=== PATIENT | female | born 1970 | race Caucasian/White ===

== ENCOUNTER 2016-08-10 06:14 | Day surgery (SDC) | payer OTHER ==
[2016-08-07 13:44] VITALS: BMI 21.6
[2016-08-10] MEDS ORDERED: ceFAZolin SODIUM 1 GM VIAL ONE ×2 (07:18→07:26)
[2016-08-10] MEDS ORDERED: EPINEPHrine 1:1,000 1 MG/1 ML - 30ML VIAL (INJECTION) ONE (07:18)
[2016-08-10] MEDS ORDERED: LIDOCAINE HCL 1%, 10 MG/ML (20ML VIAL) ONE (07:18)
[2016-08-10] MEDS ORDERED: GENTAMICIN SO4 80 MG/2 ML VIAL ONE (07:18)
[2016-08-10] MEDS ORDERED: LIDOCAINE 1%-EPI 1:100,000 30 ML MDV IJ ONE (07:19)
[2016-08-10] MEDS ORDERED: GUM MASTIC/STORAX/MSAL/ALCOHOL 1 DRP DROPSBTL MC ONE (07:23)
[2016-08-10] MEDS ORDERED: PROPOFOL 20 ML ONE (07:26)
[2016-08-10] MEDS ORDERED: LIDOCAINE HCL 2% JELLY (5 ML/TUBE) ONE (07:27)
[2016-08-10] MEDS ORDERED: ONDANSETRON 4 MG/2 ML VIAL ONE (07:27)
[2016-08-10] MEDS ORDERED: KETOROLAC TROMETHAMINE 30 MG/1 ML VIAL ONE (07:27)
[2016-08-10] MEDS ORDERED: SUCCINYLCHOLINE CHLORIDE 200 MG/10 ML VIAL ONE (07:27)
[2016-08-10] MEDS ORDERED: LIDOCAINE HCL/PF 2% SDV 5ML VIAL ONE (07:27)
[2016-08-10] MEDS ORDERED: MIDAZOLAM HCL 2 MG/2 ML SINGLE DOSE VIAL ONE (07:27)
[2016-08-10] MEDS ORDERED: DEXAMETHASONE SOD PHOSPHATE 4 MG/1 ML VIAL ONE (07:27)
[2016-08-10] MEDS ORDERED: ePHEDrine SULFATE 50 MG/1 ML AMPULE ONE (08:18)
[2016-08-10] MEDS ORDERED: PROMETHAZINE HCL 25 MG/1 ML VIAL IVPUSH PRN (10:18)
[2016-08-10] MEDS ORDERED: ONDANSETRON 4 MG/2 ML VIAL IVPUSH PRN (10:18)
[2016-08-10] MEDS ORDERED: oxyCODONE HCL 5 MG TABLET PO PRN ×2 (10:18)
[2016-08-10] MEDS ORDERED: LACTATED RINGERS SOLUTION 1,000 ML IV SCH (10:30)
[2016-08-10 11:16] VITALS: TEMP 97.2
[2016-08-10 12:00] VITALS: BP 112/72; PULSE 82
--- NOTE | 2016-08-13 12:55 | PATH ---
Surgical Pathology Report Patient Name: TAVARES QUINN [facility]. Rec. #: [id number] /Age/Gender: 1970 (Age: 45) / F Account: [id number] Location: [facility] Taken: 08/10/2016 Received: 08/10/2016 Reported: 08/13/2016 Physicians: Rafael Medina Specimen(s) Received A: RIGHT BREAST CAPSULE B: LEFT BREAST CAPSULE C: BREAST IMPLANTS Clinical History Acquired chest wall deformity Final Diagnosis A. CAPSULE, RIGHT BREAST, CAPSULECTOMY: FIBROUS CAPSULE. B. CAPSULE, LEFT BREAST, CAPSULECTOMY: FIBROUS CAPSULE. C. BREAST IMPLANTS, REMOVAL: IMPLANTS, DESCRIBED (GROSS EXAMINATION ONLY). Electronically Signed Samira English M.D. Gross Description A. Received in formalin labeled "right breast capsule," are 2 guevara portions of fibrotic tissue measuring 6.0 x 0.9 x 0.3 cm and 6.5 x 1.1 x 0.3 cm, consistent with fibrous capsules. No discrete masses are identified. Location Manager sections are submitted in one cassette. B. Received in formalin labeled "left breast capsule," is a 6.5 x 1.3 x 0.3 cm guevara, irregular portion of fibrotic tissue, consistent with a breast capsule. No discrete masses are identified. Location Manager sections are submitted in one cassette. C. Received fresh labeled "breast implants," are 2 rubbery breast implants averaging 13 cm in diameter and 3.5 cm in depth. No soft tissue is present. No sections are submitted, gross only. 08/10/201608/10/2016
--- NOTE | 2016-08-13 14:32 | OP ---
DATE OF OPERATION: 08/10/2016 OPERATIVE PROCEDURE: 1. Right breast reconstruction with other technique. 2. Left breast reconstruction with other technique. 3. Right breast capsulectomy, removal and replacement of right breast implant. 4. Left breast capsulectomy, removal and replacement of left breast implant. 5. Bilateral breast mastopexy. SURGEON: Ruthann Medina MD HEATING ELEMENT BUILDER SURGEON: FARHAT Medeiros PREOPERATIVE DIAGNOSIS: 1. Bilateral acquired chest wall deformity status post bilateral mastectomy. 2. Asymmetry of reconstructed chest wall. 3. Mechanical complication of breast implant. 4. History of breast cancer. POSTOPERATIVE DIAGNOSIS: 1. Bilateral acquired chest wall deformity status post bilateral mastectomy. 2. Asymmetry of reconstructed chest wall. 3. Mechanical complication of breast implant. 4. History of breast cancer. OPERATIVE INDICATION: Patient is a young woman who presents with asymmetry of the reconstructed chest wall after bilateral mastectomy and requires the above procedures. The risks and benefits, surgical versus nonsurgical alternatives, as well as material complications were described to the patient on multiple occasions preoperatively, including today in the holding area where the patient was marked in a standing position with knowledge of the incisions and procedure. OPERATIVE PROCEDURE IN DETAIL: Patient was taken to the operating room after induction of general anesthesia in the supine position. Both arms were extended and padded. Venodyne boots were placed, and attention was turned to the chest and abdomen. The entire chest wall, abdomen, flanks and hips were prepped in the usual fashion for breast reconstruction. Using ChloraPrep solution, the entire area was covered, and sterile drapes were placed in the usual fashion. After a time-out, attention was turned to the mastectomy scars. One percent local lidocaine anesthesia and 1:1000 epinephrine was injected into the mastectomy scars on both breasts and also on the lateral flank area for harvest of tissue. At this point, an incision was made in the right breast down through the skin to the subcutaneous tissue, through the subcutaneous tissue down to the underlying capsule. I then performed a capsulotomy and opened the capsule and then removed portions of the capsule in order to remove the implant itself. The implant was removed and sent for pathologic diagnosis. At this point, copious irrigation of the wound was performed, and attention was turned to the opposite left breast. The exact same procedure was carried out symmetrically, also performing capsulectomy and removal of the implant in a similar fashion. Attention was then turned to the lateral flank area. An incision was made down through the skin into the deep tissue of the lateral flank down to the underlying area just above the fascia. Tissue was then harvested for reconstructive purposes and transferred to the back table for preparation. This was washed, cleansed and prepared in order to reconstruct the breast in the usual fashion for breast reconstruction with other technique. At this point, implants were chosen for reconstructive purposes. They were transferred to the chest wall, and sizers were then tried in this pocket. Multiple small sizers were placed into the pocket, which appeared to be inadequate for shape of the breast, and then a [facility] [employer] [facility] Inspira cohesive breast implant, style SCF 345 mL was placed into the pocket of the right breast, which showed good shape and contour. The exact same size was then placed into the left breast symmetrically. The patient sat into a sitting position and showed good symmetry and contour. The capsule was down-sized in order to accommodate the implant, using the popcorn technique. Copious irrigation of the wounds were performed with triple-antibiotic solution throughout the case; 10 mL of Marcaine was infiltrated into the tissues for anesthetic purposes. The tissue was then transferred to the superior, inferior, lateral and medial portions of the right breast, superior, medial and lateral and central portions of the left breast. The capsule was then advanced to close upon itself for the new smaller-sized implant, and this was closed using 2-0 PDS sutures in interrupted fashion. The deep tissues were closed with 3-0 PDS sutures in the deep tissue, advanced and closed upon themselves, and the skin was closed using 3-0 PDS and 4-0 Biosyn suture in a subcuticular fashion. All wounds were closed in the flank using running and interrupted sutures. She tolerated the procedure well. She was dressed sterilely with a fluff dressing, surgery bra, and a compression dressing. She was awakened, extubated and transferred to the recovery room in satisfactory condition. RUTHANN MEDINA M.D. [id number]
== END 2016-08-10 11:50 | disposition home or self-care (01) ==
LOC: FASU 06:14
PROVIDERS: ATTEND Plastic Surgery
PROC: 0HWT0JZ Revision of Synthetic Substitute in Right Breast, Open Approach (ICD-10-PCS; 2016-08-10)
PROC: 0HQV0ZZ Repair Bilateral Breast, Open Approach (ICD-10-PCS; 2016-08-10)
PROC: 0HRV07Z Replacement of Bilateral Breast with Autologous Tissue Substitute, Open Approach (ICD-10-PCS; principal; 2016-08-10 08:29)
PROC: 0HWU0JZ Revision of Synthetic Substitute in Left Breast, Open Approach (ICD-10-PCS; 2016-08-10 08:29)
DX: M95.4 Acquired deformity of chest and rib (principal); Z85.3 Personal history of malignant neoplasm of breast; N65.0 Deformity of reconstructed breast; N65.1 Disproportion of reconstructed breast; T85.41XA Breakdown (mechanical) of breast prosthesis and implant, initial encounter; Y83.8 Other surgical procedures as the cause of abnormal reaction of the patient, or of later complication, without mention of misadventure at the time of the procedure; Y92.89 Other specified places as the place of occurrence of the external cause
CPT/HCPCS: 84703; 88300-TC; 88304-TC; 94760